=== PATIENT | male | born 1955 | race Caucasian/White ===

== ENCOUNTER → 2019-11-17 11:05 | Outpatient (CLI) | payer SELFPAY ==
--- NOTE | 2019-11-17 11:06 | RAD_ITS ---
STUDY: X-RAY - LEFT KNEE REASON FOR EXAM: Male, 64 years old. CHRONIC PAIN TECHNIQUE: 4 view(s) of the knee. COMPARISON: None. FINDINGS: There is lateral joint space narrowing, subchondral sclerosis and osteophyte formation. There are small osteophytes within the medial and patellofemoral compartments. There are no acute fractures. There are no soft tissue lesions. There is minimal suprapatellar effusion. The bone mineralization is preserved. RAD/Knee 4 or More Views IMPRESSION: Significant tricompartmental osteoarthrosis most significant within the lateral compartment as above Minimal suprapatellar effusion Electronically Signed: Edison Lino, at 7:59 EDT Tel , Service support ,
== END ==
PROVIDERS: Referring Provider Orthopaedic Surgery; Visit Provider Orthopaedic Surgery
DX: M17.12 Unilateral primary osteoarthritis, left knee (principal)
CPT/HCPCS: 73564

== ENCOUNTER → 2019-12-22 16:23 | Outpatient (CLI) | payer SELFPAY ==
[2019-11-17 11:55] VITALS: BMI 24.2
[2019-12-10 07:54] VITALS: BMI 24.2
--- NOTE | 2019-12-22 16:24 | CT_ITS ---
PROCEDURE: CT RIGHT KNEE, AND RIGHT ANKLE WITHOUT CONTRAST REASON FOR EXAM: Previous football injury. Previous meniscal repair. The knee pain. Preop Tin Knee. TECHNIQUE: Transaxial CT of the hip, knee and ankle were obtained. Coronal and sagittal reconstruction images of the knee were provided. Individualized dose optimization techniques were used for this CT. COMPARISON: None. FINDINGS: Standard protocol for the preoperative planning for the MakoPlasty robotic knee surgery was performed. Normal appearance of the left hip. There is moderate osteoarthrosis of the medial and lateral components of the knee. Mild patellofemoral osteoarthritis. Normal appearance of the ankle articulations. The visualized soft tissues and structures are grossly normal. CT/Extremity Lower without Contra IMPRESSION: Preoperative MakoPlasty Robotic knee surgical CT evaluation with findings as described above. Electronically Signed: Gatito Carr MD at 20:34 EDT , Service support ,
== END ==
PROVIDERS: Referring Provider Orthopaedic Surgery; Visit Provider Orthopaedic Surgery
DX: M17.12 Unilateral primary osteoarthritis, left knee (principal)
CPT/HCPCS: 73700

== ENCOUNTER 2020-01-06 05:32 | Day surgery (SDC) | payer SELFPAY ==
[2019-11-17 11:55] VITALS: BMI 24.2
[2019-12-10 07:54] VITALS: BMI 24.2
--- NOTE | 2019-12-10 10:17 | HP_ITS ---
Intake Vital Signs 12/10/19 BMI 24.2 Intake Visit Reasons: left knee Is patient in pain?: Yes Allergies clindamycin Allergy (Unknown, Verified 12/10/19 09:37) rash, warmth Penicillins Allergy (Unknown, Verified 12/10/19 09:37) rash, warmth Medications albuterol 90 mcg/actuation aerosol inhaler mcg INHALATION PRN 11/17/19 [History Confirmed 12/10/19] HPI left knee: Surgical H&P: Yes Details: Parts of this documentation were recorded by a scribe, this docume//ntation accurately reflects the service provided and the decisions made by me, Dr. Ananda Giron, DO 12/10/19 0754. MARISSA EMERY is a 64 year old M here today for left knee followup. Patient notes that he continues to have knee pain. Patient notes that he has popping, clicking and grinding. Patient has a knee brace. Patient has been working on his knee extension and feels like it is improving. Patient states that he has surgery on 01/06/20 and would like to sign surgery consent today. ROS Musc Reports joint pain, Reports muscle weakness, Denies numbness, Reports stiffness, Denies tingling Skin/Breast Reports system reviewed and no additional complaints, except as docu Neuro Yes system reviewed and no additional complaints, except as docu, No numbness, No tingling Ortho Exam Left Knee Skin/Wound: No ecchymosis, No erythema, No swelling Homans Sign: No Knee ROM: No ROM-Extension -20 to 0 (lacking 20), No ROM-Flexion 0-140 (120) KNEE: Left Knee Skin/Wound: No ecchymosis, No erythema, No swelling Homans Sign: No Examination: Yes med jt line tenderness, Yes Lat jt line tenderness, Yes Crepitus Stability: NML: Anterior Drawer, NML: Posterior Drawer, NML: Valgus 30, NML: Varus 30 Patella Translation: 1 Patella Grind: Yes KNEE: sensation intact over the lower extremity. muscle atrophy noted of quad vs contralateral anterior medial scar from prior open surgery lateral pain with valgus stress no instability medial sided pain with varus stress but no instability no joint effusion Supplemental Info 11/17/2019 x-ray left knee: Severe lateral compartment arthrosis moderate medial joint space narrowing and spurringPatellofemoral spurring Assessment & Plan Problems 1. Primary osteoarthritis of left knee M17.12 Plan Risks, benefits and alternatives of surgery reviewed including but not limited to bleeding, infection, nerve, artery and/or tissue damage, fracture, VTE, mechanical feel of the knee, continued pain, stiffness and expected post- operative course. Patient is aware of the risk and benifits of surgery and wishes to proceed with the left TKA with the naomi assist. Declines IOVERA tx. Instructed to stop Ibuprofen or Aleve 7 days prior to surgery. Educated that he can take Tylenol up until the day of surgery. Patient understands risk of postoperative stiffness is increased with his preoperative stiffness and does understand importance of postoperative physical therapy. Follow up 2 weeks post op or sooner if pain, swelling, numbness or associated symptoms, or concerns develop. All questions answered. Patient in agreement of plan. Coding Level of Care Code Off vis,est,level 3 Diagnoses Primary osteoarthritis of left knee M17.12 COVID (Procedure Consent) Procedure Criteria Procedure Criteria: Yes Elective The surgeon/proceduralist and patient have discussed in detail the risk of exposure to and/or potential harm posed by the COVID-19 virus with having a surgery/procedure at this time versus the risk of? delaying the surgery/procedure. It is not possible to know either the risk of delaying the surgery or procedure or chance of getting an infection with perfect accuracy, but a joint decision was made between the patient and the surgeon/proceduralist ?to proceed at this time with the scheduled surgery/procedure as indicated on the consent form. 12/10/19 1312 <Electronically signed by Ananda Ribeiro o DO> Date _ Ananda Giron DO
[2019-12-22 16:53] LABS: Absolute Lymphocyte Count 1.71 X10^3/uL (0.83-4.51); Basophil# 0.05 X10^3/uL; Basophil% 0.7 % (0-1); Eosinophil# 0.31 X10^3/uL; Eosinophils% 4.6 % (0-5); Hematocrit 44.9 % (40-54); Hemoglobin 14.9 g/dL (13.0-16.5); Lymphocyte # 1.71 X10^3/ul (4.0); Lymphocyte % 25.6 % (19-41); Mean Corp Hgb Conc 33.2 g/dL (32-36); Mean Corpuscular Hgb 31.5 pg (27.0-32.0); Mean Corpuscular Volume 94.9 fL (80-94); Mean Platelet Vol. 10.7 fl (6.2-12.0); Monocyte# 0.58 X10^3/uL; Monocyte% 8.7 % (0-10); NRBC Flagged by Analyzer 0 % (0-5); Neutrophil # 4.01 X10^3/uL (2.7-7.7); Neutrophil % 60.1 % (47-70); Platelet Count 228 K/mm3 (150-450); RBC Distribution Width CV 12.4 % (11.6-14.6); RBC Distribution Width SD 43.4 fl (35.1-43.9); Red Blood Count 4.73 M/mm3 (4.6-6.2); White Blood Count 6.7 K/mm3 (4.4-11.0)
--- NOTE | 2019-12-22 16:55 | EKG12_ITS ---
Test Reason : PRE-OP Blood Pressure : / mmHG Vent. Rate : 077 BPM Atrial Rate : 077 BPM P-R Int : 176 ms QRS Dur : 082 ms QT Int : 378 ms P-R-T Axes : 077 -24 055 degrees QTc Int : 427 ms Normal sinus rhythm Normal ECG Confirmed by SAI ALLEN, LEANN ([id number]), design editor MARLA WALKER ([id number]) on 12/23/2019 11:26:14 AM Referred By: Annada Giron Confirmed By:LEANN GIBBS MD
[2019-12-22 17:23] LABS: Prothrombin Time (Protime)PT. 12.9 SECONDS (11.7-14.9)
[2019-12-22 17:24] LABS: Partial Thromboplast Time 26.4 Seconds (24.1-36.2)
[2019-12-22 18:53] LABS: Anion Gap 4 (5-15); BUN 20 mg/dL (7-18); BUN/Creat Ratio 17.1 RATIO (10-20); Calcium,Total 8.9 mg/dL (8.5-10.1); Chloride 109 mmol/L (98-107); Creatinine, Serum 1.17 mg/dL (0.70-1.30); EST Glomerular Filtration Rate 67 mL/min (>60); Est Glom Filt Rate - Afr Amer 81 mL/min (>60); Glucose 98 mg/dL (74-106); Potassium 3.9 mmol/L (3.5-5.1); Sodium Level 141 mmol/L (136-145)
[2019-12-23 12:21] LABS: Magnesium 2.3 mg/dL (1.6-2.6)
[2020-01-06] VITALS (12 sets, daily range): BP systolic 110–134; BP diastolic 63–91; PULSE 85–103; RESP 16–18; TEMP 36.2–37.1; O2SAT 94–100; BMI 24.0
[2020-01-06] MEDS: Lactated Ringers 1,000 ML 999 ML IV (06:31)
[2020-01-06] MEDS: Gabapentin 600 MG Tablet PO (06:32)
[2020-01-06] MEDS: Celecoxib 200 MG Capsule 400 MG PO (06:32)
[2020-01-06] MEDS: Acetaminophen 500 MG Tablet 1000 MG PO ×2 (06:33→13:49)
[2020-01-06] MEDS: Scopolamine 1mg/72hr Patch 1 PATCH TRANSDERM. (06:33)
[2020-01-06] MEDS: Lactated Ringers 1,000 ML 125 ML IV (07:00)
--- NOTE | 2020-01-06 07:41 | HP.PCM_ITS ---
History and Physical Date of Admission: 01/06/20 Intake Vital Signs 12/10/19 BMI 24.2 Intake Visit Reasons: left knee Is patient in pain?: Yes Allergies clindamycin Allergy (Unknown, Verified 12/10/19 09:37) rash, warmth Penicillins Allergy (Unknown, Verified 12/10/19 09:37) rash, warmth Medications albuterol 90 mcg/actuation aerosol inhaler mcg INHALATION PRN 11/17/19 [History Confirmed 12/10/19] HPI left knee: Surgical H&P: Yes Details: Parts of this documentation were recorded by a scribe, this docume//ntation accurately reflects the service provided and the decisions made by me, Dr. Ananda Giron, DO 12/10/19 0759. MARISSA EMERY is a 64 year old M here today for left knee followup. Patient notes that he continues to have knee pain. Patient notes that he has popping, clicking and grinding. Patient has a knee brace. Patient has been working on his knee extension and feels like it is improving. Patient states that he has surgery on 01/06/20 and would like to sign surgery consent today. ROS Musc Reports joint pain, Reports muscle weakness, Denies numbness, Reports stiffness, Denies tingling Skin/Breast Reports system reviewed and no additional complaints, except as docu Neuro Yes system reviewed and no additional complaints, except as docu, No numbness, No tingling Ortho Exam Left Knee Skin/Wound: No ecchymosis, No erythema, No swelling Homans Sign: No Knee ROM: No ROM-Extension -20 to 0 (lacking 20), No ROM-Flexion 0-140 (120) KNEE: Left Knee Skin/Wound: No ecchymosis, No erythema, No swelling Homans Sign: No Examination: Yes med jt line tenderness, Yes Lat jt line tenderness, Yes Crepitus Stability: NML: Anterior Drawer, NML: Posterior Drawer, NML: Valgus 30, NML: Varus 30 Patella Translation: 1 Patella Grind: Yes KNEE: sensation intact over the lower extremity. muscle atrophy noted of quad vs contralateral anterior medial scar from prior open surgery lateral pain with valgus stress no instability medial sided pain with varus stress but no instability no joint effusion Supplemental Info 11/17/2019 x-ray left knee: Severe lateral compartment arthrosis moderate medial joint space narrowing and spurringPatellofemoral spurring Assessment & Plan Problems 1. Primary osteoarthritis of left knee M17.12 Plan Risks, benefits and alternatives of surgery reviewed including but not limited to bleeding, infection, nerve, artery and/or tissue damage, fracture, VTE, mechanical feel of the knee, continued pain, stiffness and expected post- operative course. Patient is aware of the risk and benifits of surgery and wishes to proceed with the left TKA with the naomi assist. Declines IOVERA tx. Instructed to stop Ibuprofen or Aleve 7 days prior to surgery. Educated that he can take Tylenol up until the day of surgery. Patient understands risk of postoperative stiffness is increased with his preoperative stiffness and does understand importance of postoperative physical therapy. Follow up 2 weeks post op or sooner if pain, swelling, numbness or associated symptoms, or concerns develop. All questions answered. Patient in agreement of plan. Coding Level of Care Code Off vis,est,level 3 Diagnoses Primary osteoarthritis of left knee M17.12 COVID (Procedure Consent) Procedure Criteria Procedure Criteria: Yes Elective The surgeon/proceduralist and patient have discussed in detail the risk of exposure to and/or potential harm posed by the COVID-19 virus with having a surgery/procedure at this time versus the risk of? delaying the surgery/procedure. It is not possible to know either the risk of delaying the surgery or procedure or chance of getting an infection with perfect accuracy, but a joint decision was made between the patient and the surgeon/ proceduralist ?to proceed at this time with the scheduled surgery/procedure as indicated on the consent form. I have re-examined the patient. There are no clinical changes since date of exam
[2020-01-06 07:43] LABS: Bedside Glucose 68 mg/dL (70-110)
[2020-01-06] MEDS: Cefazolin 2 GM in 0.9% Normal Saline 100 ML IV (07:45)
[2020-01-06] MEDS: dexAMETHasone 10 MG/ML Vial IV (07:50)
--- NOTE | 2020-01-06 10:02 | RAD_ITS ---
HISTORY: POST OP TOTAL KNEE. ADDITIONAL HISTORY: None provided. EXAMINATION/TECHNIQUE: XR Knee 1 or 2 Views Left Number of images including paperwork: 2 COMPARISON: 01/17/2020 FINDINGS: BONES: No acute fracture. JOINTS: Right total knee arthroplasty. No evidence of hardware publication. SOFT TISSUES: No distinct foreign body. Multiple foci of soft tissue and intra-articular gas with some soft tissue swelling and skin mally. RAD/Knee 1 or 2 Views IMPRESSION: Recent postoperative changes of left knee arthroplasty. at 0641 Reported and signed by: Valerie Salgado MD Electronically Signed: Valerie Salgado MD at 6:41 EDT Tel , Service support ,
--- NOTE | 2020-01-06 10:06 | DCINST_ITS ---
Discharge Diet: No Restrictions Weight Bearing Status: Weight bearing as tolerated Keep extremity elevated above heart level: Operative Extremity Call your doctor if you observe: Fever of 101 or Higher, Shortness of breath, Chest pain Additional Instructions: Ice and elevate one week while not ambulating. Ambulation is encouraged. Weightbearing as tolerated. Use assistive devise for stability. Encourage FULL knee extension and flexion 1 time EVERY time you get up and down and MULTIPLE times per day. No showering 72 hours after surgery. Begin showering postop day #3. Remove the dressing prior to shower and gently wash with warm water and antibacterial soap then pat dry and place abdominal pad (or plain gauze) and MARY GRACE hose over top. This is to be done daily. Do not submerge for 3 weeks. If not showering daily after the initial 72 hours then you must clean incision and change dressing daily. Do not allow animals near the incision area. Keep clean. Follow anticoagulation recommendations as prescribed. Do not take any NSAIDs while on blood thinner. Do not take any additional narcotic pain medication other than what was prescribed on you surgery day without discussing with physician. Start physical therapy. If you are not currently scheduled for physical therapy or you are unsure of appointment time please call office [facility] to arrange. Call Dr. Giron with any concerns. Allergies/Adverse Reactions: Allergies clindamycin Allergy (Unknown, Verified 01/06/20 06:07) rash, warmth Penicillins Allergy (Unknown, Verified 01/06/20 06:07) rash, warmth Medications to take at Discharge albuterol 90 mcg/actuation aerosol inhaler 1 - 2 puff INHALATION TID PRN PRN 11/17/19 Multivitamin 1 ea PO DAILY 12/23/19 Acetaminophen [Tylenol Extra Strength] 1,000 mg PO Q6H PRN #100 tab 01/06/20 Apixaban [Eliquis] 2.5 mg PO BID #30 tab 01/06/20 Cephalexin [Keflex] 1,000 mg PO Q8 #4 cap 01/06/20 Oxycodone [Oxyir] 5 mg PO Q4H PRN PRN #60 tablet 01/06/20 The following prescriptions were given: Apixaban [Eliquis] 2.5 mg PO BID #30 tab Transmission Status: Pending to [facility] Cephalexin [Keflex] 1,000 mg PO Q8 #4 cap Transmission Status: Pending to [facility] Oxycodone [Oxyir] 5 mg PO Q4H PRN PRN #60 tablet PRN Reason: Pain Score 6-10 Transmission Status: Sent to [facility] Acetaminophen [Tylenol Extra Strength] 1,000 mg PO Q6H PRN #100 tab Transmission Status: Pending to [facility] Primary Care Physician: Agustina Kidd SENIOR CREDIT ANALYST, SENIOR CREDIT ANALYST-C [Primary Care Provider] - Test Results: Test results from this visit will be discussed in further detail at your follow- up appointment, if applicable. Please Follow Up With: Ananda Giron DO - 2 weeks
--- NOTE | 2020-01-06 10:07 | PCM.OPRPT ---
Report of Operation Date of Procedure: 01/06/20 Description of Surgical Findings:: Preoperative diagnosis: Left knee DJD Postoperative diagnosis: Same Procedure: Left total knee arthroplasty CT guided Robotic Assisted Implant: Dianne triathlon cemented femoral component size 4, cemented tibial baseplate size 5, cemented asymmetric patella size 35, polyethylene X3 size 12 CS Anesthesia: Spinal with adductor canal block Tourniquet time: 40 minutes at 300 mmHg Complications: None Condition: Stable to PACU Estimated blood loss: 125 cc Indication for procedure: This is a 64-year-old male with long standing degenerative joint disease of the knee who has failed conservative treatment and wished to proceed with elective total knee arthroplasty. Risk benefits and alternatives were reviewed including; risk of bleeding, infection, nerve artery and tissue damage, continued pain, postoperative stiffness, venous thromboembolism, need for postoperative rehabilitation, mechanical feel to the knee, and expected postoperative course. The operative CT and templating was performed with component sizing Procedure: The patient was met in the preoperative holding area. The operative extremity was identified by both patient and physician and was marked. Patient was met by anesthesia. An adductor canal block was placed by anesthesia postoperatively the patient was brought back to the operating room on a wheeled cart and transferred to the operating table in the supine position. Anesthesia was started. A well-padded tourniquet was placed on the operative extremity. The patient was prepped and draped in the usual sterile fashion. A timeout was called to ensure the proper patient procedure and extremity were being contemplated. An Esmarch was used to exsanguinate the extremity. The tourniquet was inflated. A 10 blade scalpel was used to make a midline incision down through the skin and subcutaneous tissue. Skin retractors placed. Bovie was used to perform meticulous hemostasis. full-thickness flaps were elevated medial and lateral along the joint capsule. A deep blade scalpel was used to perform a medial parapatellar arthrotomy. The knee was brought to full extension. A Bovie was used to release the soft tissues off the most proximal aspect of the medial tibial plateau a three-quarter inch curved osteotome was also used for this process. The infrapatellar fat pad was excised. The fat pad was excised partially anterior lateral portion the anterior medial was elevated from the femur. At this point our intra-articular femoral array was placed of a 45 degree angle proximal and posterior to the medial epicondyle. Our tibial array was placed greater than 1 hands breath below the incision at a 20 degree angle stab incisions were used for this case were attached and checked with the robotic software. Tourniquet was let down. At this point registration bergeron were taken throughout the knee as well as checkpoints placed in the femur and tibia once the knee was registered then tensioned the medial and lateral ligaments in extension and 90 degrees of flexion. We then used these numbers to adjust our components within parameters to balance the knee in both flexion and extension once this was done on our monitor we then proceeded with using the robotic arm to make our tibial plateau cut and anterior posterior and chamfer cuts on the femur we then trialed, the knee was tight in flexion and we did determined to cut additional 2 degrees of slope in the tibia however however after doing this and re-trialing it was still tight in flexion we then decided downsized the femur to a 4 and shifted posteriorly 1 and had a degree of flexion this achieved the desired balancing with a well-balanced knee. Lug holes were drilled in the femur the tibia preparation was completed with a fin punch and the patella was prepared by first using a caliper to ensure sufficient bone stock and a patellar reamer to remove the desired amount of bone locals were drilled for an asymmetric poly-. We then brought the knee through range of motion with excellent patellar tracking. We thoroughly irrigated the knee with a trial components were removed a posterior capsular injection with her standard cocktail was performed the aqua Mantis was also used to aid in hemostasis. Betadine rinse was allowed to sit and washed out components were cemented. Aricept rinse was then used followed by several more rate liters of irrigation after it was allowed to sit. Joint capsule was closed with #1 Ethibond [id number] followed by Vicryl in the subcutaneous tissues staple in the skin arrays and checkpoints were removed prior to closure all counts were correct stab incisions were closed with a stable standard dressing in the form of Mepilex for the main incision Xeroform 4 x 4 and Tegaderm over pin site holes. Thigh-high MARY GRACE hose applied over top of dressing. Patient tolerated the procedure well and was directed to PACU in stable condition no intraoperative complications
[2020-01-06] MEDS: Epinephrine (1 mg/ml) 1 MG/ML VIAL (10:13)
[2020-01-06] MEDS: Bupivacaine 0.5% PF 10 ML VIAL (10:13)
[2020-01-06] MEDS: 0.9% Normal Saline (Pres. free 10 ML Vial (10:14)
[2020-01-06] MEDS: Betamethasone/Betamethasone 30 MG/5 ML Vial (10:14)
[2020-01-06] MEDS: Cefazolin 1 GM/50 ML BAG IV (12:52)
== END 2020-01-06 15:43 | disposition home or self-care (01) ==
LOC: SDC 05:32 → AC 05:32
PROVIDERS: Anesthesiology; Referring Provider Orthopaedic Surgery; Visit Provider Orthopaedic Surgery
PROC: 0SRD0JZ Replacement of Left Knee Joint with Synthetic Substitute, Open Approach (ICD-10-PCS; CPT 27447; principal; 2020-01-06 07:00)
DX: M17.12 Unilateral primary osteoarthritis, left knee (principal); J45.909 Unspecified asthma, uncomplicated
CPT/HCPCS: 01402; 27447; 36415; 73560; 80048; 82962; 83735; 85025; 85610; 85730; 86850; 86900; 86901; 87081; 87635; 93005; 97162; 97166; C1776; C9803; J7120; J0702; J2405; J3490; U0003

== ENCOUNTER 2023-02-22 13:03 | Emergency (ER) | payer MEDICARE, OTHER, SELFPAY ==
[2023-02-22 13:05] VITALS: BP 116/91; PULSE 95; RESP 16; TEMP 36; O2SAT 100; BMI 22.7
--- NOTE | 2023-02-22 13:48 | ED.VIS.GI ---
HPI HPI - GI History of Present Illness Chief Complaint: Diarrhea Informant: patient Narrative Narrative: 67-year-old male has had diarrhea for the past 3 weeks. He states the initial 4 days were pretty miserable with profuse watery diarrhea, no blood. It seemed to get better after then but for the past 2+ weeks, he has had 5 or less stools per day, they are either loose or watery, and they are all pale yellow-whitish. He has had no jaundice, diffuse pruritus, confusion, fevers or chills, nausea, vomiting. When he eats and drinks fluids, he does not have any issues, just seems to make the diarrhea come sooner. He has been having some intermittent right-sided abdominal pains, sometimes right upper quadrant sometimes right lower quadrant, none right at this moment. He states he goes camping not infrequently, and he drinks well water when he does so. He brings up concern about parasites such as Giardia. He states 2 and half or 3 weeks ago near the onset, he was seen at [facility] emergency department, he had IV fluids and some tests done including diarrhea and was told that everything was normal. He has had a right inguinal herniorrhaphy but no other abdominal surgeries and has no medical problems takes no medications. No recent antibiotics. No history of C. difficile. No travel out of the region. [facility] Medical History no medical history no medical history Home Medications albuterol 90 mcg/actuation aerosol inhaler 1 - 2 puff inhalation TID PRN PRN asthma sx 11/17/19 [History Last Taken Unknown] multivitamin 1 ea PO DAILY supplement 12/23/19 [History Last Taken Unknown] acetaminophen 500 mg tablet 1,000 mg (2 x 500 mg) PO Q6H PRN #100 tabs 01/06/20 [Rx Last Taken Unknown] cephalexin 500 mg capsule 2,000 mg (4 x 500 mg) PO ONCE #4 caps 01/09/22 [Rx Last Taken Unknown] cephalexin 500 mg capsule 500 mg PO ONCE #4 caps 05/15/22 [Rx Last Taken Unknown] Allergy/AdvReac Type Severity Reaction Status Date / Time clindamycin Allergy Unknown rash, Verified 12/15/20 10:40 warmth Penicillins Allergy Unknown rash, Verified 12/15/20 10:40 warmth Social History Smoking Status: Never smoker ROS ROS ED Constitutional Constitutional ED: Reports fatigue; Denies chills or fever(s) Eyes Eyes: Denies change in vision or diplopia ENT ENT ED: Denies rhinorrhea or sore throat Cardiovascular Cardiovascular: Denies chest pain or palpitations Respiratory/Chest Respiratory/Chest: Denies cough or dyspnea Gastrointestinal Gastrointestinal: Reports as per HPI, abdominal pain, diarrhea and loose stools; Denies hematochezia, melena, nausea or vomiting Genitourinary Genitourinary ED: Reports other Details: normal urine color/tint ; Denies dysuria or hematuria Musculoskeletal Musculoskeletal: Denies back pain or neck pain Integumentary Denies abscess or rash Neurologic Neurologic: Denies headache(s), paresthesias or weakness Psychiatric Psychiatric: Denies anxiety or suicidal thoughts EXAM Physical Exam Const Vital Signs: 02/22/23 13:05 Temperature 96.8 F L Temperature Source Temporal Pulse Rate 95 Respiratory Rate 16 Blood Pressure 116/91 H Blood Pressure Mean 99 Pulse Ox 100 Oxygen Delivery Method Room Air Positive well nourished and well developed General Appearance ED: well developed and NAD HEENT Reports moist mucous membranes normocephalic and atraumatic Eyes PERRL and EOMs intact bilaterally Neck full ROM and supple Resp normal respiratory effort and clear to auscultation bilaterally Cardio regular rate, regular rhythm and no murmurs GI non-tender and non-distended Auscultation: normoactive bowel sounds Palpation: soft Back/Spine no CVA tenderness General Back: other FROM Extremity normal to inspection General Extremety ED: Negative for edema, pulses abnormal or tenderness General Extremity: Negative for edema or pulses abnormal Neuro oriented x3, CN's II-XII intact bilaterally and no sensory deficits noted Sensorium / Orientation: awake and alert Motor Exam: strength 5/5 throughout Psych mental status grossly normal Skin no rashes or lesions noted and no wounds MDM MDM MDM Narrative Medical decision making narrative: Initially ordered labs, stool studies, CT abdomen/pelvis, along with IV fluids. However we were able to receive records of test that were performed at [facility] when he was there 2 weeks ago, this included a stool enteric pathogen PCR that was negative, so we canceled that stool test, as well as a CT of the abdomen/pelvis which was negative for anything acute including masses or biliary issues except for a few nonspecific mesenteric lymph nodes that were prominent. Therefore, our CT was canceled prior to obtaining it since I do not think that needs to be repeated, but it might be reasonable to obtain an ultrasound of the right upper quadrant to evaluate for stones and cholecystitis. This was obtained, I reviewed the images and the report which I agree with, basically negative for any acute cholecystitis or stones, and no sign of gallbladder wall thickening or biliary obstruction, incidentally there is noted mild fatty infiltration of the liver. Unknown if this is related to the patient's GI symptoms or not, but at this time we are waiting for him to provide enough stool specimen to run ova and parasites/Giardia, I discussed with the labs that will turn around in 2 or 3 days, so after patient submits enough specimen, he will be discharged to follow-up with his doctor. My suspicion for acute infection here is low given all of the test results he has already had and his lack of leukocytosis at this time. Additionally, his liver enzymes are unremarkable including his bilirubin, arguing against cholestasis and biliary obstruction. Lab Data Attestation: I reviewed the patient's lab results. Labs: Laboratory Results - last 24 hr 02/22/23 14:12 WBC 8.7 RBC 4.25 L Hgb 13.6 Hct 40.1 MCV 94.4 H MCH 32.0 MCHC 33.9 RDW Std Deviation 43.9 RDW Coeff of Archana 12.8 Plt Count 280 MPV 10.3 Immature Gran % (Auto) 0.100 Neut % (Auto) 74.3 H Lymph % (Auto) 14.1 L [place] % (Auto) 7.8 Eos % (Auto) 3.1 Baso % (Auto) 0.6 Absolute Neuts (auto) 6.5 Absolute Lymphs (auto) 1.23 Nucleated RBC % 0 Sodium 142 Potassium 3.7 Chloride 112 H Carbon Dioxide 28.0 Anion Gap 2 L BUN 8 Creatinine 0.93 Estim Creat Clear Calc 80.58 Est GFR (MDRD) Af Amer 105 Est GFR (MDRD) Non-Af 87 BUN/Creatinine Ratio 8.6 L Glucose 96 Calcium 8.5 Total Bilirubin 0.20 AST 24 ALT 35 Alkaline Phosphatase 68 Total Protein 6.3 L Albumin 3.1 L Globulin 3.2 Albumin/Globulin Ratio 1.0 Lipase 39 Urine Color Yellow Urine Clarity Clear Urine pH 6.5 Ur Specific [place] 1.010 Urine Protein Negative Urine Glucose (UA) Normal Urine Ketones Negative Urine Occult Blood Negative Urine Nitrite Negative Urine Bilirubin Negative Urine Urobilinogen Normal Ur Leukocyte Esterase Negative Urine RBC 0 SEEN Urine WBC 0 SEEN Ur Squamous Epith Cells 0-5 SEEN Urine Bacteria 0 SEEN Urine Mucus 0 SEEN Radiography Diagnostic Testing: Clinical Impression(s) from Imaging Studies Gallbladder Ultrasound 02/22/23 14:18 IMPRESSION: Mild degree of fatty infiltration of the liver. Electronically Signed: Anthony Segura MD at 15:12 EST , Discharge Plan Triage Chief Complaint: Diarrhea ED Provider: Adis Ingram Dx/Rx/DC Orders Clinical Impression: Acute diarrhea, Pale stool, Fatty infiltration of liver Instructions: ED Diarrhea, Unknown Cause Prescriptions: No Action albuterol 90 mcg/actuation aerosol inhaler 90 mcg/actuation aerosol 1 - 2 puff INHALATION TID PRN PRN (Reason: asthma sx) multivitamin 1 EACH tablet 1 ea PO DAILY acetaminophen 500 MG tablet 1,000 mg PO Q6H PRN Qty: 100 0RF cephalexin 500 mg capsule 2,000 mg PO ONCE Qty: 4 1RF Rx Instructions: 4 tabs by mouth within 1 hour prior to dental procedure cephalexin 500 mg capsule 500 mg PO ONCE Qty: 4 1RF Rx Instructions: take 4 tabs within 1 hour prior to dental procedure Primary Care Provider: Care Physician,No Primary Referrals: Agustina Kidd CAN STACKER, [facility] [Non-Staff] - As soon as possible Disposition Disposition: Home, Self Care
[2023-02-22 14:17] LABS: Bacteria 0 SEEN /hpf (None Seen); Mucous, Urine 0 SEEN /hpf (<or=2+); Red Blood Cells-Urine 0 SEEN /hpf (0-5); White Blood Cells 0 SEEN /hpf (0-5)
--- NOTE | 2023-02-22 14:18 | US_ITS ---
STUDY: ABDOMINAL ULTRASOUND - RIGHT UPPER QUADRANT REASON FOR VISIT: Male, 67 years old pain, discolored stools TECHNIQUE: Ultrasound evaluation of the right upper quadrant was performed with real-time and static pond-scale imaging. TECHNICAL QUALITY: Adequate. COMPARISON: None. FINDINGS: Liver: The liver measures 16.1 cm. There is mild increased echogenicity consistent with mild fatty infiltration. The bile ducts are within normal limits. There is hepatic color flow. The direction of portal flow is hepatopetal. There is no demonstrated mass lesion. Gallbladder: Normal distended gallbladder. The gallbladder wall measures 2 mm. There is a negative sonographic Sanches''s sign. There is no pericholecystic fluid. There are no gallstones. Common Bile Duct (C.B.D.): The common bile duct measures 3 mm. Pancreas: Normal size of the head, body and tail of the pancreas. There is normal echogenicity of the pancreas. There is no demonstrated pancreatic mass or cyst. Right Kidney: Normal size of the right kidney. The right kidney measures 11.5 cm x 4.2 cm x 5 cm. Normal renal cortex. The right cortex measures 1.4 cm. There is no demonstrated renal mass or cyst. There is no right hydronephrosis. US/Gallbladder IMPRESSION: Mild degree of fatty infiltration of the liver. Electronically Signed: Anthony Segura MD at 15:12 EST ,
[2023-02-22 14:19] LABS: Absolute Lymphocyte Count 1.23 X10^3/uL (0.83-4.51); Absolute Neutrophil Count 6.5 X10^3/uL (2.0-7.7); Basophil# 0.05 X10^3/uL; Basophil% 0.6 % (0-1); Color, Urine Yellow (Yellow); Eosinophil# 0.27 X10^3/uL; Eosinophils% 3.1 % (0-5); Glucose, Dipstick Normal (Normal); Hematocrit 40.1 % (40-54); Hemoglobin 13.6 g/dL (13.0-16.5); Ketone-Dipstick Negative (Negative); Leukocyte Esterase-Dipstick Negative /ul (Negative); Lymphocyte # 1.23 X10^3/ul (0.83-4.51); Lymphocyte % 14.1 % (19-41); Mean Corp Hgb Conc 33.9 g/dL (32-36); Mean Corpuscular Volume 94.4 fL (80-94); Mean Platelet Vol. 10.3 fl (6.2-12.0); Monocyte# 0.68 X10^3/uL; Monocyte% 7.8 % (0-10); NRBC Flagged by Analyzer 0 % (0-5); Neutrophil # 6.47 X10^3/uL (2.7-7.7); Neutrophil % 74.3 % (47-70); Nitrite-Dipstick Negative (Negative); Occult Blood-Urine Negative /ul (Negative); Platelet Count 280 K/mm3 (150-450); Protein-Dipstick Negative (Negative); RBC Distribution Width CV 12.8 % (11.6-14.6); RBC Distribution Width SD 43.9 fl (35.1-43.9); Red Blood Count 4.25 M/mm3 (4.6-6.2); Urine Bilirubin Dipstick Negative (Negative); Urine Clarity Clear (Clear); Urine Urobilinogen Normal (Normal); Urine pH 6.5 (5.0 - 8.0); White Blood Count 8.7 K/mm3 (4.4-11.0)
[2023-02-22] MEDS: 0.9% Normal Saline (1000mL) 1,000 ML 1000 ML IV (14:25)
[2023-02-22 14:26] LABS: Squamous Epithelial Cells - UA 0-5 SEEN /hpf (0-5)
[2023-02-22 14:36] LABS: AST(SGOT) 24 U/L (15-37); Alanine Aminotransfer ALT/SGPT 35 U/L (16-61); Albumin, Serum 3.1 g/dL (3.2-5.0); Alkaline Phosphatase 68 U/L (45-117); Anion Gap 2 (5-15); BUN 8 mg/dL (7-18); BUN/Creat Ratio 8.6 RATIO (10-20); Calcium,Total 8.5 mg/dL (8.5-10.1); Chloride 112 mmol/L (98-107); Creatinine, Serum 0.93 mg/dL (0.70-1.30); EST Glomerular Filtration Rate 87 mL/min (>60); Est Glom Filt Rate - Afr Amer 105 mL/min (>60); Estimated Creatinine Clearance 80.58 ml/min; Globulin 3.2 g/dL (2.2-4.2); Glucose 96 mg/dL (74-106); Lipase 39 U/L (13-75); Potassium 3.7 mmol/L (3.5-5.1); Protein, Total 6.3 g/dL (6.4-8.2); Sodium Level 142 mmol/L (136-145)
[2023-02-22 16:49] VITALS: BP 134/78; PULSE 64; RESP 14; TEMP 36.4; O2SAT 99
--- NOTE | 2023-02-22 16:49 | ED.RN ---
PT COULD NOT PRODUCE A BM FOR TESTING PT SENT HOME WITH ORDER STICKERS AND CUP TO BRING BACK A STOOL SAMPLE
== END 2023-02-22 16:49 | disposition home or self-care (01) ==
PROVIDERS: Emergency Provider Emergency Medicine; Visit Provider Emergency Medicine
DX: R19.7 Diarrhea, unspecified (principal); K76.0 Fatty (change of) liver, not elsewhere classified
CPT/HCPCS: 76705; 80053; 81001; 83690; 85025; 87177; 87209; 87493; 99283

== ENCOUNTER → 2023-02-23 | Outpatient (CLI) | payer MEDICARE, OTHER, SELFPAY | END | disposition home or self-care (01) | LOC: LAB 11:43 | PROVIDERS: Referring Provider Emergency Medicine; Visit Provider Emergency Medicine | DX: Z00.00 Encounter for general adult medical examination without abnormal findings (principal) ==

== ENCOUNTER 2024-01-25 09:26 | Emergency (ER) | payer MEDICARE, OTHER, SELFPAY ==
[2024-01-25 09:28] VITALS: BP 149/81; PULSE 88; RESP 16; TEMP 36.6; O2SAT 99
[2024-01-25 09:35] VITALS: BMI 25.0
--- NOTE | 2024-01-25 10:16 | EKG12_ITS ---
Test Reason : DIZZY/CP Blood Pressure : */* mmHG Vent. Rate : 80 BPM Atrial Rate : 80 BPM P-R Int : 188 ms QRS Dur : 90 ms QT Int : 372 ms P-R-T Axes : 67 -35 47 degrees QTcB Int : 429 ms Normal sinus rhythm Left axis deviation Abnormal ECG Confirmed by SAI ALLEN, LEANN ([id number]), social media editor JOSELUIS MANN ([id number]) on 01/28/2024 9:34:45 AM Referred By: RANJAN/LONNIE Confirmed By: LEANN GIBBS MD
--- NOTE | 2024-01-25 10:20 | RAD_ITS ---
STUDY: X-RAY CHEST REASON FOR EXAM: Male, 68 years old. Chest pain TECHNIQUE: Single AP portable view of the chest. COMPARISON: None. FINDINGS: EKG electrodes are seen. The lungs are clear and expanded. There is no demonstrated pleural abnormality. Normal size heart. Normal mediastinum and kirti. Normal visualized pulmonary arteries. Normal visualized aortic arch and descending thoracic aorta. There are degenerative changes of the visualized thoracic spine. Normal visualized ribs, clavicles, and shoulders. There is no demonstrated abnormality of the visualized soft tissue structures of the upper abdomen. RAD/Chest 1 View (Portable) IMPRESSION: Normal x-ray examination of the chest. Electronically Signed: Anthony Segura MD at 10:56 EDT ,
[2024-01-25] MEDS: Aspirin 81 MG TAB.CHEW 324 MG PO (10:22)
[2024-01-25 10:32] LABS: Absolute Lymphocyte Count 1.48 X10^3/uL (0.83-4.51); Absolute Neutrophil Count 3.8 X10^3/uL (2.0-7.7); Basophil# 0.06 X10^3/uL; Eosinophil# 0.16 X10^3/uL; Eosinophils% 2.6 % (0-5); Hematocrit 46.4 % (40-54); Hemoglobin 15.5 g/dL (13.0-16.5); Lymphocyte # 1.48 X10^3/ul (0.83-4.51); Lymphocyte % 24.3 % (19-41); Mean Corp Hgb Conc 33.4 g/dL (32-36); Mean Corpuscular Hgb 31.3 pg (27.0-32.0); Mean Corpuscular Volume 93.5 fL (80-94); Mean Platelet Vol. 10.8 fl (6.2-12.0); Monocyte# 0.53 X10^3/uL; Monocyte% 8.7 % (0-10); NRBC Flagged by Analyzer 0 % (0-5); Neutrophil # 3.84 X10^3/uL (2.7-7.7); Neutrophil % 63.1 % (47-70); Platelet Count 198 K/mm3 (150-450); RBC Distribution Width CV 12.8 % (11.6-14.6); RBC Distribution Width SD 43.7 fl (35.1-43.9); Red Blood Count 4.96 M/mm3 (4.6-6.2); White Blood Count 6.1 K/mm3 (4.4-11.0)
--- NOTE | 2024-01-25 10:43 | ED.VIS.CHEST ---
HPI History of Present Illness Chief Complaint: Chest Pain Detail of Chief Complaint: Chest pain that went to his left arm and numbness of his left hand Informant: patient Onset/Context/Timing Onset: Today (At approximately 03 100) Activity at onset: sudden Timing: Intermittent (1 to 2 minutes numbness in the left upper extremity lasted 30 minutes) Quality: Positive for Sharp Location: Substernal and Left Parasternal Current Severity: Gone Maximum Severity: Moderate Worsened By: Nothing Relieved By: Nothing Associated Symptoms: Positive for Nausea and Dyspnea; Negative for Vomiting, Diaphoresis, Cough, Fever, Lightheadedness, Acid Reflux or Palpitations Narrative Narrative: Patient is a 68-year-old healthy athletic gentleman with history of asthma. He has a rescue inhaler. He has no known history of coronary disease. There is strong family history of coronary artery disease at young age. He presently has no chest discomfort. He is uncertain whether the pain awoke him from sleep or when he awoke at 3:00 in morning he noted the pain. He denies history of reflux, hiatal hernia, intolerance to greasy or fried foods or peptic ulcer disease. Denies black or maroon-colored stool. Patient has not had any dyspnea with activity or chest discomfort activity over the past 1 to 2 weeks. He has no history of VTE. There is no leg pain, swelling discoloration. Patient denies any black or maroon-colored stool. There is no history of direct or indirect trauma. Prior Similar Symptoms: No Recent Illness/Hospitalization: No CVD Risk Factors: Negative for Hypertension, Diabetes, Hypercholesterolemia, Family History 1' </=55 or Smoking PE Risk Factors: Negative for Recent Travel/Surgery, Recent Immobilization, Prior DVT or PE, Cancer or OCP + Smoking + >/=35 TAD Risk Factors: Negative for Marfan's Syndrome, Hypertension or Family History [facility] Medical History Inguinal hernia Asthma Home Medications ?Medication ?Instructions ?Recorded ?Last Taken ?Type albuterol 90 mcg/actuation aerosol 1 - 2 puff inhalation TID PRN PRN 11/17/19 Unknown History inhaler asthma sx multivitamin 1 ea PO DAILY supplement 12/23/19 Unknown History acetaminophen 500 mg tablet 1,000 mg (2 x 500 mg) PO Q6H PRN 01/06/20 Unknown Rx #100 tabs cephalexin 500 mg capsule 2,000 mg (4 x 500 mg) PO ONCE #4 01/09/22 Unknown Rx caps cephalexin 500 mg capsule 500 mg PO ONCE #4 caps 05/15/22 Unknown Rx Allergy/AdvReac Type Severity Reaction Status Date / Time clindamycin Allergy Unknown rash, Verified 01/25/24 09:30 warmth Penicillins Allergy Unknown rash, Verified 01/25/24 09:30 warmth Surgical History History of left knee replacement Social History Smoking Status: Never smoker ROS ROS ED Constitutional Constitutional ED: Denies chills, fever(s), subjective, sweats or weight loss Eyes Eyes: Reports none ENT ENT ED: Denies rhinorrhea or sore throat Cardiovascular Cardiovascular: Reports as per HPI; Denies orthopnea or paroxysmal nocturnal dyspnea Respiratory/Chest Respiratory/Chest: Reports dyspnea; Denies cough, dyspnea on exertion, orthopnea or paroxysmal nocturnal dyspnea Gastrointestinal Gastrointestinal: Denies abdominal pain, constipation, melena, nausea or vomiting Genitourinary Genitourinary ED: Denies dysuria, hematuria or urinary frequency Musculoskeletal Musculoskeletal: Denies back pain, myalgias or neck pain Integumentary Denies rash Neurologic Neurologic: Denies headache(s) or paresthesias Psychiatric Psychiatric: Denies anxiety or depression Endocrine Endocrinology: Denies cold intolerance or heat intolerance EXAM Physical Exam Const Vital Signs: 01/25/24 09:28 01/25/24 09:35 01/25/24 10:18 Temperature 97.9 F Temperature Source Temporal Pulse Rate 88 Respiratory Rate 16 Respiratory Effort Normal Non-Labored Respiratory Pattern Normal Blood Pressure 149/81 H Blood Pressure Mean 103 Pulse Ox 99 Oxygen Delivery Method Room Air Room Air 01/25/24 11:27 Temperature Temperature Source Pulse Rate 72 Respiratory Rate 16 Respiratory Effort Respiratory Pattern Blood Pressure 111/75 Blood Pressure Mean 87 Pulse Ox 98 Oxygen Delivery Method Positive well nourished and well developed General Appearance ED: well developed and NAD; Negative for pallor HEENT Reports TM's clear and moist mucous membranes normocephalic and atraumatic Tympanic Membrane ED: Yes TM's clear Eyes PERRL and EOMs intact bilaterally General Eye ED: Negative for pale conjunctiva or scleral icterus Neck no lymphadenopathy, supple and no JVD Chest Wall inspection of chest normal and palpation of chest normal Resp normal respiratory effort and clear to auscultation bilaterally Cardio regular rate, regular rhythm, S1 normal heart sound, S2 normal heart sound and no murmurs GI normal to inspection, nondistended, normoactive bowel sounds, soft to palpation, non-tender, non-distended and no masses; Negative for hepatosplenomegaly Back/Spine no CVA tenderness and no thoracic nor lumbar tenderness Extremity Negative for normal to inspection Extremity Narrative: There is no asymmetry, swelling, discoloration, leg vein distention, palpable cords or tenderness along the distribution of the deep venous system. General Extremety ED: Negative for edema or pulses abnormal General Extremity: Negative for edema or pulses abnormal Neuro oriented x3 and CN's II-XII intact bilaterally Sensorium / Orientation: awake and alert Psych mental status grossly normal Skin no rashes or lesions noted General Skin Exam: Negative for jaundice or pallor MDM MDM Lab Data Attestation: I reviewed the patient's lab results. Lab results narrative: CBC is normal. Basic metabolic panel with slight elevation of BUN, 22. First and second troponin were less than 3. With both troponins being less than 4 negative predictive value for cardiac disease of 100%. Labs: Laboratory Results - last 24 hr 01/25/24 01/25/24 09:45 11:52 WBC 6.1 RBC 4.96 Hgb 15.5 Hct 46.4 MCV 93.5 MCH 31.3 MCHC 33.4 RDW Std Deviation 43.7 RDW Coeff of Archana 12.8 Plt Count 198 MPV 10.8 Immature Gran % (Auto) 0.300 Neut % (Auto) 63.1 Lymph % (Auto) 24.3 [place] % (Auto) 8.7 Eos % (Auto) 2.6 Baso % (Auto) 1.0 Absolute Neuts (auto) 3.8 Absolute Lymphs (auto) 1.48 Nucleated RBC % 0 Sodium 138 Potassium 3.9 Chloride 107 Carbon Dioxide 27.0 Anion Gap 3 L BUN 22 H Creatinine 1.08 Estim Creat Clear Calc 67.28 Est GFR (MDRD) Af Amer 88 Est GFR (MDRD) Non-Af 73 BUN/Creatinine Ratio 20.4 H Glucose 99 Calcium 9.4 Troponin I High Sens < 3 L < 3 L Radiography Chest X-Ray - ED: 1 View, Read by ED Physician ([id number]), Normal, Heart, Lungs, Mediastinum, Bony Structures and No Acute Disease Diagnostic Testing: Clinical Impression(s) from Imaging Studies Chest X-Ray 01/25/24 10:20 IMPRESSION: Normal x-ray examination of the chest. Electronically Signed: Anthony Segura MD at 10:56 EDT , EKG Initial EKG: Attestation: I personally reviewed and interpreted this EKG as follows: Interpretation: Sinus Rhythm (Sinus rhythm rate of 80. There is a left axis. MD interval is 188 ms. Cures duration 90 ms. QT duration 272 ms. There are no ischemic changes.) Treatment and Re-Evaluation :: Patient was formed of results. He was discharged to home. Discharge Plan Triage Chief Complaint: Chest Pain ED Provider: Pacheco Martinez Dx/Rx/DC Orders Clinical Impression: Chest pain, Paresthesias in left hand, History of asthma Instructions: ED Chest Pain, Noncardiac, ED Chest Pain, Uncertain Cause Prescriptions: No Action albuterol 90 mcg/actuation aerosol 1 - 2 puff INHALATION TID PRN PRN (Reason: asthma sx) multivitamin 1 EACH tablet 1 ea PO DAILY acetaminophen 500 MG tablet 1,000 mg PO Q6H PRN Qty: 100 0RF cephalexin 500 mg capsule 2,000 mg PO ONCE Qty: 4 1RF Rx Instructions: 4 tabs by mouth within 1 hour prior to dental procedure cephalexin 500 mg capsule 500 mg PO ONCE Qty: 4 1RF Rx Instructions: take 4 tabs within 1 hour prior to dental procedure Primary Care Provider: Care Physician,No Primary Referrals: Care Physician,No Primary [Primary Care Provider] - Doctor,Your [Non-Staff] - 1-2 Weeks Print Language: French Disposition Disposition: Home, Self Care
[2024-01-25 10:44] LABS: Anion Gap 3 (5-15); BUN 22 mg/dL (7-18); BUN/Creat Ratio 20.4 RATIO (10-20); Calcium,Total 9.4 mg/dL (8.5-10.1); Chloride 107 mmol/L (98-107); Creatinine, Serum 1.08 mg/dL (0.70-1.30); EST Glomerular Filtration Rate 73 mL/min (>60); Est Glom Filt Rate - Afr Amer 88 mL/min (>60); Estimated Creatinine Clearance 67.28 ml/min; Glucose 99 mg/dL (74-106); Potassium 3.9 mmol/L (3.5-5.1); Sodium Level 138 mmol/L (136-145); Troponin-I HS (w/2H Reflex) < 3 pg/mL (3.0-78.0)
[2024-01-25 11:27] VITALS: BP 111/75; PULSE 72; RESP 16; O2SAT 98
[2024-01-25 12:19] LABS: Reflex Troponin-HS? (from REC) Y
[2024-01-25 13:00] VITALS: BP 120/76
[2024-01-25 13:11] LABS: Troponin-I HS < 3 pg/mL (3.0-78.0)
[2024-01-25 13:40] VITALS: BP 120/76; PULSE 76; RESP 18; TEMP 36.4; O2SAT 99
== END 2024-01-25 13:46 | disposition home or self-care (01) ==
PROVIDERS: Emergency Provider Emergency Medicine; Visit Provider Emergency Medicine
DX: R07.9 Chest pain, unspecified (principal); R20.2 Paresthesia of skin; Z82.49 Family history of ischemic heart disease and other diseases of the circulatory system
CPT/HCPCS: 71045; 80048; 84484; 85025; 93005; 99285; A4216